=== PATIENT | male | born 1965 | race Caucasian/White ===

== ENCOUNTER 2017-10-20 10:31 | Inpatient (IN) | payer OTHER ==
[~2017-10-20] VITALS: Ht 185.4 cm; Wt 100.5 kg
[2017-10-20] MEDS ORDERED: IOHEXOL 350 MG/ML 10 ML VIAL (for RAD DIAG) IVCONTRAST ONE (10:32)
[2017-10-20 10:39] VITALS: BP 137/82; TEMP 98
[2017-10-20] MEDS ORDERED: ZOLO100T PO (10:49)
[2017-10-20] MEDS ORDERED: SODIUM CHLORIDE 0.9% FLUSH 10 ML FLUSH IVF PRN (11:00)
[2017-10-20] MEDS ORDERED: SODIUM CHLOR 0.9% 1000 ML INJ 1,000 ML IV ONE ×2 (11:00→15:15)
[2017-10-20] MEDS ORDERED: HYDROmorphone HCL PF 1 MG/ML VIAL IV PUSH ONE ×2 (11:00→11:30)
--- NOTE | 2017-10-20 11:26 | PD ---
HPI Chief Complaint: Musculoskeletal Complaint Time Seen by Provider: 10:50 Travel History International Travel<30 days: No Contact w/Intl Traveler<30days: No Traveled to known affect area: No History of Present Illness HPI 51-year-old male with PMH of HTN, HLD presents to the ED via EMS from [facility]. The patient states that he was working under a [employer] truck this morning. He had a josef under the front end of the vehicle. He states that his long lever was broken so he was using a short lever to lower the josef. During this time he was lying on his side with his shoulders and head under the front of the car. He states that the josef came down faster than expected and the car dropped onto his left shoulder, pinning his right shoulder to the ground. He states it felt a painful pop in the mid sternum and complains of 10/10 pain in the area on presentation. Pain is worsened by deep breathing or movement. Denies hitting his head or LOC. He denies palpitations, shortness of breath, abdominal pain, nausea or vomiting. Denies pain, weakness, limitations to ROM of the bilateral shoulders or upper extremities. Per EMS he received 100 mics of fentanyl en route. PFSH Past Medical History High Cholesterol: Yes Diminished Hearing: No Hypertension: Yes Tetanus Vaccination: < 5 Years ?: Not Past Surgical History Surgical History: No Previous Surgery Social History Alcohol Use: Yes (Ocasionally) Tobacco Use: No Substance Use: No Allergies-Medications (Allergen,Severity, Reaction): Coded Allergies: Penicillins (Verified Allergy, Unknown, Hives, 10/20/17) ampicillin (Verified Allergy, Unknown, Hives, 10/20/17) Reported Meds & Prescriptions Reported Meds & Active Scripts Active Reported Zoloft (Sertraline HCl) 100 Mg Tab 100 Mg PO DAILY Review of Systems Except as stated in HPI: all other systems reviewed are Neg Physical Exam Narrative GENERAL: Well-nourished, well-developed white male in no acute distress. SKIN: Warm and dry. ~1cm superficial abrasion of the right elbow. Thorough evaluation reveals no other edema, ecchymosis, abrasion, or laceration of the skin. HEAD: Normocephalic. Atraumatic. No raccoon eyes or carlson sign. No tenderness to palpation of the skull. No bony step-offs. No malocclusion of the teeth. EYES: No scleral icterus. No injection or drainage. PERRLA. EOMI. ENT: Pearly mendes tympanic membranes bilaterally. Nasal mucosa is moist. Oropharynx without erythema, edema or exudate. NECK: Supple, trachea midline. No JVD or lymphadenopathy. No midline tenderness to palpation. Patient retains full, active, painless range of motion of the neck. CARDIOVASCULAR: Regular rate and rhythm without murmurs, gallops, or rubs. 2+ DP and radial pulses bilaterally. CHEST: Tender throughout with deformity of the midbody of the sternum. No crepitus. No retractions or use of accessory muscles. RESPIRATORY: Breath sounds clear and equal bilaterally. GASTROINTESTINAL: Abdomen soft, non-tender, nondistended. + Bowel sounds MUSCULOSKELETAL: No cyanosis, or edema. No tenderness to palpation or limitations to range of motion of the joints of the upper and lower extremities bilaterally. NEUROLOGICAL: Awake and alert. Cranial nerves II through XII intact. Motor and sensory grossly within normal limits. 5/5 muscle strength in all muscle groups. Normal speech. BACK: Nontender without obvious deformity. No CVA tenderness. No midline tenderness. Data Data Last Documented VS Vital Signs Date Time Temp Pulse Resp B/P (MAP) Pulse Ox O2 Delivery O2 Flow Rate FiO2 10/20/17 13:32 18 10/20/17 11:54 79 142/79 (100) 98 Room Air 10/20/17 10:39 98.0 Orders Orders Complete Blood Count With Diff (10/20/17 11:00) Comprehensive Metabolic Panel (10/20/17 11:00) Prothrombin Time / Inr (Pt) (10/20/17 11:00) Troponin I (10/20/17 11:00) Iv Access Insert/Monitor (10/20/17 11:00) Electrocardiogram (10/20/17 11:00) Ecg Monitoring (10/20/17 11:00) Oximetry (10/20/17 11:00) Chest, Single Ap (10/20/17 11:00) Sodium Chloride 0.9% Flush (Ns Flush) (10/20/17 11:00) Ct Thorax/ Chest W Iv Contrast (10/20/17 ) Hydromorphone Pf Inj (Dilaudid Pf Inj) (10/20/17 11:00) Sodium Chlor 0.9% 1000 Ml Inj (Ns 1000 M (10/20/17 11:00) Act Partial Throm Time (Ptt) (10/20/17 11:00) Hydromorphone Pf Inj (Dilaudid Pf Inj) (10/20/17 11:30) Hydromorphone Pf Inj (Dilaudid Pf Inj) (10/20/17 11:45) Hydromorphone Pf Inj (Dilaudid Pf Inj) (10/20/17 13:15) Hydromorphone Pf Inj (Dilaudid Pf Inj) (10/20/17 13:30) Iohexol 350 Inj (Omnipaque 350 Inj) (10/20/17 10:32) Admit Order (Ed Use Only) (10/20/17 14:15) Labs Laboratory Tests Test 10/20/17 11:15 10/20/17 13:20 White Blood Count 6.4 TH/MM3 Red Blood Count 4.60 MIL/MM3 Hemoglobin 13.9 GM/DL Hematocrit 39.7 % Mean Corpuscular Volume 86.3 FL Mean Corpuscular Hemoglobin 30.3 PG Mean Corpuscular Hemoglobin Concent 35.2 % Red Cell Distribution Width 13.2 % Platelet Count 242 TH/MM3 Mean Platelet Volume 9.4 FL Neutrophils (%) (Auto) 66.9 % Lymphocytes (%) (Auto) 24.9 % Monocytes (%) (Auto) 6.4 % Eosinophils (%) (Auto) 1.2 % Basophils (%) (Auto) 0.6 % Neutrophils # (Auto) 4.2 TH/MM3 Lymphocytes # (Auto) 1.6 TH/MM3 Monocytes # (Auto) 0.4 TH/MM3 Eosinophils # (Auto) 0.1 TH/MM3 Basophils # (Auto) 0.0 TH/MM3 CBC Comment DIFF FINAL Differential Comment Prothrombin Time 11.2 SEC Prothromb Time International Ratio 1.1 RATIO Activated Partial Thromboplast Time 24.5 SEC Blood Urea Nitrogen 17 MG/DL Creatinine 0.88 MG/DL Random Glucose 96 MG/DL Total Protein 7.3 GM/DL Albumin 3.9 GM/DL Calcium Level 8.5 MG/DL Alkaline Phosphatase 106 U/L Aspartate Amino Transf (AST/SGOT) 18 U/L Alanine Aminotransferase (ALT/SGPT) 28 U/L Total Bilirubin 0.5 MG/DL Sodium Level 138 MEQ/L Potassium Level 4.0 MEQ/L Chloride Level 107 MEQ/L Carbon Dioxide Level 25.2 MEQ/L Anion Gap 6 MEQ/L Estimat Glomerular Filtration Rate 91 ML/MIN Troponin I LESS THAN 0.02 NG/ML MDM Medical Decision Making Medical Screen Exam Complete: Yes Emergency Medical Condition: Yes Differential Diagnosis Sternal fracture versus flail chest versus rib fracture versus musculoskeletal pain versus pneumothorax versus hemothorax versus other Narrative Course 51-year-old male with PMH of HTN, HLD presents to the ED via EMS from [facility]. Patient states that he was lying on his side, attempting to lower josef and was pinned under a mail truck. He versus feeling a pop in the midsternum and complaint to 10 pain on presentation. Denies palpitations, SOB, abdominal pain, nausea, vomiting, upper extremity injury. Vitals reviewed. O2 sats 98% on room air on presentation. Physical exam reveals deformity of the mid sternum and tenderness to palpation over the medial chest. Exams otherwise unremarkable. IV is established. Patient was administered 0.5 milligram of Dilaudid. EKG: Rate 79, sinus rhythm short KS interval. KS 107, QRS 106, QTC 405. Normal axis. No acute ST changes. Reviewed by Dr. Shelley CXR: Airspace opacities in the left lung base without consolidation. No evidence of pneumothorax. Troponin less then 0.02. CBC and CMP unremarkable. INR 1.1. CT chest: Negative for acute traumatic injury. Minimal bibasilar parenchymal changes. No displaced fracture. Sternum intact. Patient continues to complain of pain was administered 2 mg of Dilaudid IV. I spoke with Dr. Caceres who agrees to accept the patient to the trauma service. Please see trauma notes for disposition. Denita Cee Oct 20, 2017 11:26
[2017-10-20] MEDS ORDERED: HYDROmorphone HCL PF 2 MG/ML VIAL IV PUSH ONE ×3 (11:45→13:30)
[2017-10-20 11:54] VITALS: BP 142/79; PULSE 79; RESP 17; O2SAT 98
[2017-10-20 12:12] LABS: AUTOMATED NEUTROPHIL # 4.2 TH/MM3 (1.8-7.7); BASOPHIL % 0.6 % (0.0-2.0); EOSINOPHIL # 0.1 TH/MM3 (0-0.4); EOSINOPHIL % 1.2 % (0.0-4.0); HEMATOCRIT 39.7 % (39.0-51.0); HEMOGLOBIN 13.9 GM/DL (13.0-17.0); LYMPH % 24.9 % (9.0-44.0); LYMPHOCYTE # 1.6 TH/MM3 (1.0-4.8); MEAN CELL VOLUME 86.3 FL (80.0-100.0); MEAN CORPUSCULAR HEMOGLOBIN 30.3 PG (27.0-34.0); MEAN CORPUSCULAR HGB CONC 35.2 % (32.0-36.0); MEAN PLATELET VOLUME 9.4 FL (7.0-11.0); MONO % 6.4 % (0.0-8.0); MONOCYTE # 0.4 TH/MM3 (0-0.9); NEUT % 66.9 % (16.0-70.0); PLATELET COUNT 242 TH/MM3 (150-450); RED CELL DISTRIBUTION WIDTH 13.2 % (11.6-17.2); WHITE BLOOD COUNT 6.4 TH/MM3 (4.0-11.0)
--- NOTE | 2017-10-20 12:41 | RADRPT ---
EXAM DATE/TIME: 10/20/2017 12:03 [facility] COMPARISON: No previous studies available for comparison. INDICATIONS : Trauma. MEDICAL HISTORY : None. SURGICAL HISTORY : None. ENCOUNTER: Initial ACUITY: 1 day PAIN SCORE: 0/10 LOCATION: Bilateral chest FINDINGS: Frontal view of the chest demonstrates patchy airspace opacities at the left lung base and some mild lower medial air bronchograms. The right lung is clear. The heart is normal size. CONCLUSION: Airspace opacities of the left lung base without consolidation. No evidence pneumothorax. Ezequiel Young MD on October 20, 2017 at 12:37 Board Certified Radiologist. This report was verified electronically.
[2017-10-20 13:46] LABS: INTERNATIONAL NORMALIZED RATIO 1.1 RATIO
[2017-10-20 13:49] LABS: PROTHROMBIN TIME - PATIENT 11.2 SEC (9.8-11.6)
--- NOTE | 2017-10-20 13:50 | PD ---
Physical Exam Narrative I, Dr. Shelley, have reviewed the advance practice practitioner's documentation and am in agreement, met with the patient face to face, made the diagnosis, and the medical decision making was done by me. *My assessment and Findings: Patient is a 51 year old male who comes in after a truck fell off a josef and onto his shoulder. He complains of severe pain to the middle of his chest. Exam shows tenderness to palpation of the chest. Lungs clear and equal bilaterally. Data Data Last Documented VS Vital Signs Date Time Temp Pulse Resp B/P (MAP) Pulse Ox O2 Delivery O2 Flow Rate FiO2 10/20/17 13:32 18 10/20/17 11:54 79 142/79 (100) 98 Room Air 10/20/17 10:39 98.0 Orders Orders Complete Blood Count With Diff (10/20/17 11:00) Comprehensive Metabolic Panel (10/20/17 11:00) Prothrombin Time / Inr (Pt) (10/20/17 11:00) Troponin I (10/20/17 11:00) Iv Access Insert/Monitor (10/20/17 11:00) Electrocardiogram (10/20/17 11:00) Ecg Monitoring (10/20/17 11:00) Oximetry (10/20/17 11:00) Chest, Single Ap (10/20/17 11:00) Sodium Chloride 0.9% Flush (Ns Flush) (10/20/17 11:00) Ct Thorax/ Chest W Iv Contrast (10/20/17 ) Hydromorphone Pf Inj (Dilaudid Pf Inj) (10/20/17 11:00) Sodium Chlor 0.9% 1000 Ml Inj (Ns 1000 M (10/20/17 11:00) Act Partial Throm Time (Ptt) (10/20/17 11:00) Hydromorphone Pf Inj (Dilaudid Pf Inj) (10/20/17 11:30) Hydromorphone Pf Inj (Dilaudid Pf Inj) (10/20/17 11:45) Hydromorphone Pf Inj (Dilaudid Pf Inj) (10/20/17 13:15) Hydromorphone Pf Inj (Dilaudid Pf Inj) (10/20/17 13:30) Iohexol 350 Inj (Omnipaque 350 Inj) (10/20/17 10:32) Admit Order (Ed Use Only) (10/20/17 14:15) Labs Laboratory Tests Test 10/20/17 11:15 10/20/17 13:20 White Blood Count 6.4 TH/MM3 Red Blood Count 4.60 MIL/MM3 Hemoglobin 13.9 GM/DL Hematocrit 39.7 % Mean Corpuscular Volume 86.3 FL Mean Corpuscular Hemoglobin 30.3 PG Mean Corpuscular Hemoglobin Concent 35.2 % Red Cell Distribution Width 13.2 % Platelet Count 242 TH/MM3 Mean Platelet Volume 9.4 FL Neutrophils (%) (Auto) 66.9 % Lymphocytes (%) (Auto) 24.9 % Monocytes (%) (Auto) 6.4 % Eosinophils (%) (Auto) 1.2 % Basophils (%) (Auto) 0.6 % Neutrophils # (Auto) 4.2 TH/MM3 Lymphocytes # (Auto) 1.6 TH/MM3 Monocytes # (Auto) 0.4 TH/MM3 Eosinophils # (Auto) 0.1 TH/MM3 Basophils # (Auto) 0.0 TH/MM3 CBC Comment DIFF FINAL Differential Comment Prothrombin Time 11.2 SEC Prothromb Time International Ratio 1.1 RATIO Activated Partial Thromboplast Time 24.5 SEC Blood Urea Nitrogen 17 MG/DL Creatinine 0.88 MG/DL Random Glucose 96 MG/DL Total Protein 7.3 GM/DL Albumin 3.9 GM/DL Calcium Level 8.5 MG/DL Alkaline Phosphatase 106 U/L Aspartate Amino Transf (AST/SGOT) 18 U/L Alanine Aminotransferase (ALT/SGPT) 28 U/L Total Bilirubin 0.5 MG/DL Sodium Level 138 MEQ/L Potassium Level 4.0 MEQ/L Chloride Level 107 MEQ/L Carbon Dioxide Level 25.2 MEQ/L Anion Gap 6 MEQ/L Estimat Glomerular Filtration Rate 91 ML/MIN Troponin I LESS THAN 0.02 NG/ML MDM Supervised Visit with RENAN: Yes Narrative Course Patient given pain medicine. CT chest performed shows no acute abnormalities. Placed in observation for pain control and monitoring. Last 24 hours Impressions Chest X-Ray 10/20/17 1100 Signed Impressions: Service Date/Time: Friday, October 20, 2017 12:03 - CONCLUSION: Airspace opacities of the left lung base without consolidation. No evidence pneumothorax. Ezequiel Young MD Chest CT 10/20/17 0000 Signed Impressions: Service Date/Time: Friday, October 20, 2017 13:42 - CONCLUSION: Negative for acute traumatic injury. Minimal bibasilar parenchymal changes No displaced fracture. Sternum intact Samuel Candelario MD FACR Diagnosis Primary Impression: Chest wall contusion Qualified Codes: S20.219A - Contusion of unspecified front wall of thorax, initial encounter Admitting Information Admitting Physician Requests: Observation Scripts Lidocaine (Lidoderm) 5 % Adh..patch 1 PATCH TD DAILY for Pain Management, #20 EA Prov: Kacy James [employer] 10/21/17 Sennosides-Docusate Sodium (Gnp Senna Plus 8.6-50 mg) 8.6 Mg-50 Mg Tab 2 TAB PO BID for Constipation, #30 TAB Prov: Kacy James [employer] 10/21/17 Oxycodone HCl/Acetaminophen (Oxycodone-Acetaminophen 5-325) 5 Mg-325 Mg Tablet 1-2 TAB PO Q4H Y for Pain, #30 TAB Prov: Kacy JamesP 10/21/17 Methocarbamol (Methocarbamol) 500 Mg Tab 500 MG PO Q8HR for Muscle Spasm, #40 TAB Prov: Kacy JamesP 10/21/17 Constanza Shelley MD Oct 20, 2017 13:50
[2017-10-20 14:02] LABS: ALBUMIN 3.9 GM/DL (3.4-5.0); ALT (GPT) 28 U/L (12-78); AST (GOT) 18 U/L (15-37); BICARBONATE 25.2 MEQ/L (21.0-32.0); BLOOD UREA NITROGEN 17 MG/DL (7-18); CALCIUM 8.5 MG/DL (8.5-10.1); CHLORIDE 107 MEQ/L (98-107); CREATININE 0.88 MG/DL (0.60-1.30); GLOMERULAR FILTRATION RATE 91 ML/MIN (>89); GLUCOSE,RANDOM 96 MG/DL (74-106); SODIUM (NA) 138 MEQ/L (136-145)
[2017-10-20 14:06] LABS: ALKALINE PHOSPHATASE 106 U/L (45-117); TOTAL BILIRUBIN ADULT 0.5 MG/DL (0.2-1.0); TOTAL PROTEIN 7.3 GM/DL (6.4-8.2); TROPONIN I LESS THAN 0.02 NG/ML (0.02-0.05)
--- NOTE | 2017-10-20 14:23 | RADRPT ---
EXAM DATE/TIME: 10/20/2017 13:42 [facility] COMPARISON: CHEST SINGLE AP, October 20, 2017, 12:03. INDICATIONS : Car fell on patient,right chest area IV CONTRAST: 70 cc Omnipaque 350 (iohexol) IV RADIATION DOSE: 20.03 CTDIvol (mGy) MEDICAL HISTORY : Hypertension. SURGICAL HISTORY : None. ENCOUNTER: Initial ACUITY: 1 day PAIN SCALE: 3/10 LOCATION: Right chest TECHNIQUE: Volumetric scanning of the chest was performed. Using automated exposure control and adjustment of t he mA and/or kV according to patient size, radiation dose was kept as low as reasonably achievable to obtain optimal diagnostic quality images. DICOM format image data is available electronically for review and comparison. Follow-up recommendations for detected pulmonary nodules are based at a minimum on nodule size and pa tient risk factors according to Fleischner Society Guidelines. FINDINGS: Minimal bibasilar atelectatic changes are evident. There is no axillary adenopathy. Mediastinum is intact. There is no pneumothorax. There is no shara cardial effusion Portion of the liver visualizes free of focal defects Review of bone windows reveals clavicles and sternum to be intact. I don't see displaced rib fractur es. CONCLUSION: Negative for acute traumatic injury. Minimal bibasilar parenchymal changes No displaced fracture. Sternum intact Samuel Candelario MD FACR on October 20, 2017 at 14:19 Board Certified Radiologist. This report was verified electronically.
[2017-10-20] MEDS ORDERED: ONDANSETRON HCL 4 MG/2 ML VIAL IV PUSH ONE (14:30)
[2017-10-20 14:36] VITALS: BP 131/65; PULSE 72; RESP 17; O2SAT 94
[2017-10-20] MEDS ORDERED: oxyCODONE/ACETAMINOPHEN 10 MG/325 MG TAB PO ONE (15:15)
[2017-10-20] MEDS ORDERED: NALOXONE HCL 0.4 MG/ML AMP IV PUSH PRN (16:30)
[2017-10-20] MEDS ORDERED: Post-op Orders (for Pharmacy) XX ONE (16:30)
[2017-10-20] MEDS ORDERED: MORPHINE SULFATE 2 MG/ML INJ IV PUSH PRN (16:30)
[2017-10-20] MEDS ORDERED: SODIUM CHLORIDE 0.9% FLUSH 10 ML FLUSH IV FLUSH PRN (16:30)
[2017-10-20] MEDS ORDERED: ONDANSETRON HCL 4 MG/2 ML VIAL IV PUSH PRN (16:30)
[2017-10-20 17:00] VITALS: BP 121/63; PULSE 67; RESP 15; TEMP 96.6; O2SAT 98
[2017-10-20] MEDS: SODIUM CHLOR 0.9% 1000 ML INJ 1,000 ML IV SCH (17:00)
[2017-10-20] MEDS: oxyCODONE/ACETAMINOPHEN 5 MG/325 MG TAB PO PRN (18:52)
[2017-10-20 20:00] VITALS: BP 128/61; PULSE 73; RESP 17; TEMP 96.3; O2SAT 94
[2017-10-20] MEDS ORDERED: LACTULOSE SYRUP 20 GM/30 ML CUP PO PRN (20:00)
[2017-10-20] MEDS ORDERED: REMOVE OLD PATCH T-DERMAL SCH (21:00)
[2017-10-20] MEDS: SODIUM CHLORIDE 0.9% FLUSH 10 ML FLUSH IV FLUSH SCH (21:00)
[2017-10-20] MEDS: METHOCARBAMOL 500 MG TAB PO SCH (22:07)
[2017-10-20] MEDS: DOCUSATE SODIUM 50 MG/SENNA 8.6 MG TAB PO SCH (22:07)
[2017-10-20] MEDS: LISINOPRIL 10 MG TAB PO SCH (22:07)
--- NOTE | 2017-10-20 22:08 | MH ---
cc: RENU CALHOUN MD DATE OF ADMISSION: 10/20/2017 REASON FOR ADMISSION: Trauma to the chest, severe chest pain, buckle injury to the sternum and costochondral junction. HISTORY OF PRESENT DISEASE: This 51-year-old male was working under some sort of a truck when the thing fell on him. He was laying sideways so he felt severe chest pain. He was brought into the hospital, was evaluated by the ER physician. I was called to admit the patient for possible sternal fracture. On x-rays there was no sternal fracture, however the patient had severe pain in the right costochondral junction which is a buckle injury and he is admitted for same. PAST SURGICAL HISTORY: Negative. PAST MEDICAL HISTORY: Hypertension. Depression. MEDICATIONS: The patient is on Zoloft and I guess lisinopril but I do not see that here in the computer. ALLERGIES: No known allergies. 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 PHYSICAL EXAMINATION: The patient is a pleasant 51 year-old gentleman in no acute distress. HEENT: Normocephalic. No trauma to the head. Pupils equal and reactive. Extraocular muscles intact. Neck: Supple, bilateral carotid pulses. No bruits. No signs of trauma to the neck. Chest: Bilateral breath sounds. Heart: Regular rhythm. Hemodynamically the patient is intact. On palpation he is very tender over the right chest, especially costochondral junction, sternum. However, I do not appreciate fractures or deformities here. Abdomen: Soft. Active bowel sounds. No rebound, no guarding, no masses. Extremities: Grossly within normal limits. Back: Normal. The patient does not have injuries to his shoulders except for some bruising. IMPRESSION AND PLAN: The patient is a 51-year-old male with a buckle injury to his rib cage and severe pain. He is admitted for pain management and observation. Renu MCGREGOR/GORGE /7:53 PM /9:57 PM
[2017-10-20] MEDS: LIDOCAINE HCL 5% PATCH TD SCH (22:09)
[2017-10-20] MEDS: FAMOTIDINE 20 MG TAB PO SCH (22:10)
[2017-10-21] VITALS: BP 111/59; PULSE 75; RESP 17; TEMP 96.9; O2SAT 92
[2017-10-21] MEDS: oxyCODONE/ACETAMINOPHEN 5 MG/325 MG TAB PO PRN (03:44)
[2017-10-21] MEDS ORDERED: OMEP20TA93 PO (04:59)
[2017-10-21] MEDS ORDERED: ATOR40TA16 PO (04:59)
[2017-10-21] MEDS ORDERED: SUCR1TAB PO (04:59)
[2017-10-21] MEDS: METHOCARBAMOL 500 MG TAB PO SCH (05:47)
[2017-10-21] MEDS ORDERED: oxyCODONE/ACETAMINOPHEN 10 MG/325 MG TAB PO PRN (06:30)
[2017-10-21 07:18] LABS: AUTOMATED NEUTROPHIL # 4.8 TH/MM3 (1.8-7.7); BASOPHIL % 0.5 % (0.0-2.0); EOSINOPHIL # 0.1 TH/MM3 (0-0.4); EOSINOPHIL % 1.4 % (0.0-4.0); HEMATOCRIT 35.1 % (39.0-51.0); HEMOGLOBIN 12.3 GM/DL (13.0-17.0); LYMPH % 21.9 % (9.0-44.0); LYMPHOCYTE # 1.5 TH/MM3 (1.0-4.8); MEAN CELL VOLUME 87.3 FL (80.0-100.0); MEAN CORPUSCULAR HEMOGLOBIN 30.6 PG (27.0-34.0); MONO % 7.4 % (0.0-8.0); MONOCYTE # 0.5 TH/MM3 (0-0.9); NEUT % 68.8 % (16.0-70.0); PLATELET COUNT 212 TH/MM3 (150-450); RED BLOOD COUNT 4.02 MIL/MM3 (4.50-5.90); RED CELL DISTRIBUTION WIDTH 13.2 % (11.6-17.2); WHITE BLOOD COUNT 6.9 TH/MM3 (4.0-11.0)
[2017-10-21 08:00] VITALS: BP 122/61; PULSE 69; RESP 18; TEMP 97; O2SAT 94
[2017-10-21] MEDS ORDERED: SERTRALINE HCL 100 MG TAB PO SCH (09:00)
--- NOTE | 2017-10-21 09:05 | RADRPT ---
EXAM DATE/TIME: 10/21/2017 08:37 [facility] COMPARISON: CHEST SINGLE AP, October 20, 2017, 12:03. INDICATIONS : Evaluate for pulmonary contusion. Short of breath. MEDICAL HISTORY : Hypertension. SURGICAL HISTORY : None. ENCOUNTER: Subsequent ACUITY: 2 days PAIN SCORE: 4/10 LOCATION: Right chest FINDINGS: There is persistent mild contusion or atelectasis in the left lung base and small effusion present. M inimal atelectasis in the contralateral right face. No evidence of pneumothorax. Cardiac contours are grossly stable. CONCLUSION: Mild bibasilar parenchymal opacities and small left effusion Graham Khan MD on October 21, 2017 at 9:01 Board Certified Radiologist. This report was verified electronically.
[2017-10-21] MEDS: FAMOTIDINE 20 MG TAB PO SCH (10:01)
[2017-10-21] MEDS: LISINOPRIL 10 MG TAB PO SCH (10:02)
[2017-10-21] MEDS: LIDOCAINE HCL 5% PATCH TD SCH (10:03)
[2017-10-21] MEDS: DOCUSATE SODIUM 50 MG/SENNA 8.6 MG TAB PO SCH (10:03)
[2017-10-21] MEDS: SODIUM CHLOR 0.9% 1000 ML INJ 1,000 ML IV SCH (10:04)
[2017-10-21] MEDS ORDERED: METH500T3 PO (11:22)
[2017-10-21] MEDS ORDERED: OXYC1TAB63 PO (11:22)
[2017-10-21] MEDS ORDERED: LIDO1ADH4 TD (11:59)
[2017-10-21] MEDS ORDERED: PERI PO (11:59)
[2017-10-21 12:00] VITALS: BP 125/67; PULSE 72; RESP 16; TEMP 95.9; O2SAT 92
[2017-10-21] MEDS: SODIUM CHLORIDE 0.9% FLUSH 10 ML FLUSH IV FLUSH SCH (12:35)
--- NOTE | 2017-10-21 13:27 | HHI.DS ---
Discharge Summary Admission Date Oct 20, 2017 at 16:28 Discharge Date: Oct 21, 2017 Admitting Diagnosis displaced sternal fracture (1) Blunt chest trauma ICD Codes: S29.8XXA - Other specified injuries of thorax, initial encounter Diagnosis: Principal (2) Injury of sternum ICD Codes: S29.9XXA - Unspecified injury of thorax, initial encounter (3) Bilateral pulmonary contusion ICD Codes: S27.322A - Contusion of lung, bilateral, initial encounter (4) Substernal chest pain ICD Codes: R07.2 - Precordial pain Brief History S/P Trauma: Blunt chest trauma CBC/BMP: 10/21/17 0528 10/20/17 1320 Significant Findings Laboratory Tests Test 10/20/17 11:15 10/20/17 13:20 10/21/17 05:28 Troponin I LESS THAN 0.02 NG/ML Red Blood Count 4.02 MIL/MM3 (4.50-5.90) Hemoglobin 12.3 GM/DL (13.0-17.0) Hematocrit 35.1 % (39.0-51.0) Imaging Last Impressions Chest X-Ray 10/21/17 0000 Signed Impressions: Service Date/Time: October 08:37 - CONCLUSION: Mild bibasilar parenchymal opacities and small left effusion Graham Khan MD Chest CT 10/20/17 0000 Signed Impressions: Service Date/Time: Friday, October 20, 2017 13:42 - CONCLUSION: Negative for acute traumatic injury. Minimal bibasilar parenchymal changes No displaced fracture. Sternum intact Samuel Candelario MD FACR PE at Discharge GENERAL: 51 year old well-nourished, well-developed male OOB in chair. SKIN: Warm and dry. HEAD: Atraumatic. Normocephalic. EYES: Pupils equal and round. No scleral icterus. No injection or drainage. ENT: No nasal bleeding or discharge. Mucous membranes pink and moist. NECK: Trachea midline. No JVD. CARDIOVASCULAR: Regular rate and rhythm. RESPIRATORY: No accessory muscle use. Clear and diminished to auscultation. Breath sounds equal bilaterally. Midline sternum painful to palpation. GASTROINTESTINAL: Abdomen soft, non-tender, nondistended. + BS MUSCULOSKELETAL: Extremities without cyanosis, or edema. MAEW, + perfused. Full ROM in shoulders. NEUROLOGICAL: Awake and alert. Normal speech. Hospital Course [place]: Working under a vehicle that was jacked up, lying on his right side. The josef came down too quickly causing the vehicle to land on his left shoulder and pinning his right shoulder to the ground. Patient reports a loud mid-sternal pop and substernal chest pain. Transferred for Trauma services. INJURIES: Sternal injury BILAT pulmonary contusions PMHx: Depression Sternal injury, BILAT pulmonary contusions Supportive care CXR today stable Pulmonary toileting- encouraged home use of IS Pain control Denies shoulder pain, just substernal CP No heavy lifting or strenuous activity until released by F/U with Trauma office in 1 week Plan of care d/w patient and at bedside. Patient is clear from Trauma surgery standpoint to safely DC home. Pt Condition on Discharge: Stable Discharge Disposition: Discharge Home Discharge Instructions DIET: Follow Instructions for: As Tolerated, No Restrictions Activities you can perform: Weight Bearing as Sharan Activities to Avoid: Concussion Sports, Contact Sports, Strenuous Activity Kacy James Oct 21, 2017 13:27
--- NOTE | 2017-10-21 20:14 | EKG ---
Date Performed: 10/20/2017 Time Performed: 11:42:23 PTAGE: 51 years EKG: Sinus rhythm WITH SHORT NM INTERVAL BORDERLINE ECG NO PREVIOUS TRACING DOCTOR: Chris Lucas Interpretating Date/Time 10/21/2017 20:13:34
== END 2017-10-21 13:12 | disposition home or self-care (01) | DRG 206 ==
LOC: NEPE 10:31 → NEDA 14:17 → OBSVTOIN 16:28 → N07B 16:45
PROVIDERS: ADMIT Surgery; ATTEND Surgery
DX: S27.322A Contusion of lung, bilateral, initial encounter (principal); I10 Essential (primary) hypertension; S29.8XXA Other specified injuries of thorax, initial encounter; F32.9 Major depressive disorder, single episode, unspecified; E78.5 Hyperlipidemia, unspecified; W23.1XXA Caught, crushed, jammed, or pinched between stationary objects, initial encounter; Y92.69 Other specified industrial and construction area as the place of occurrence of the external cause; Y99.0 Civilian activity done for income or pay; R07.2 Precordial pain
CPT/HCPCS: 71045; 71260; 80053; 84484; 85025; 85610; 85730; 93005; 94150; 96361; 96374; 96376; J1170; J2405; J7030; Q9967

== ENCOUNTER 2018-02-28 13:14 | Emergency (ER) | payer OTHER ==
[~2018-02-28] VITALS: Ht 185.4 cm; Wt 100.0 kg
[~2018-02-28 13:14] MED LIST: ATOR40TA16 PO; LIDO1ADH4 TD; METH500T3 PO; OMEP20TA93 PO; OXYC1TAB63 PO; PERI PO; SUCR1TAB PO; ZOLO100T PO
[2018-02-28 13:18] VITALS: BP 176/108; PULSE 86; RESP 16; TEMP 98.4; O2SAT 96
[2018-02-28] MEDS ORDERED: PRED20 PO (14:27)
[2018-02-28] MEDS ORDERED: CYCL5TAB PO (14:27)
--- NOTE | 2018-02-28 14:53 | PD ---
HPI Chief Complaint: Laceration/Skin Injury Time Seen by Provider: 14:39 Travel History International Travel<30 days: No Contact w/Intl Traveler<30days: No Traveled to known affect area: No History of Present Illness HPI 52-year-old male presents to the emergency department with complaint of a laceration to his left forearm from a piece of tile that fell and cut his arm. He was seen in urgent care and was told to come here because of "an arterial bleed." He denies paresthesias, loss of sensation, decreased range of motion, decreased strength to the affected hand/extremity. Has applied pressure to control bleeding. Is up-to-date on tetanus vaccination. Says he is not in any pain right now because they did numb the laceration at urgent care. Has not taken any medications to alleviate her symptoms. Symptoms are mild in severity. Allergies to penicillins. Primary care provider is Dr. Santoyo in [place]. History of hypertension and hypercholesterolemia. Has no other medical complaints. No other modifying factors or associated signs and symptoms. PFSH Past Medical History Arthritis: Yes Depression: Yes Cancer: No High Cholesterol: Yes Diminished Hearing: No Endocrine: No GERD: Yes Genitourinary: No Hypertension: Yes Neurologic: No Reproductive: No Respiratory: No Tetanus Vaccination: < 5 Years Past Surgical History Surgical History: No Previous Surgery Other Surgery: No Social History Alcohol Use: Yes (Ocasionally) Tobacco Use: No Substance Use: No Allergies-Medications (Allergen,Severity, Reaction): Coded Allergies: Penicillins (Verified Allergy, Unknown, Hives, 10/20/17) ampicillin (Verified Allergy, Unknown, Hives, 10/20/17) Reported Meds & Prescriptions Reported Meds & Active Scripts Active Bactrim DS (Sulfamethoxazole-Trimethoprim) 800-160 Mg Tab 1 Tab PO BID 7 Days Reported Prednisone 20 Mg Tab 40 Mg PO DIRECTED 40 MG twice a day x 3 days, then 20 MG daily x 3 days, then 10 MG daily x 3 days Flexeril (Cyclobenzaprine HCl) Unknown Strength Tab Unknown Dose PO BID Omeprazole 20 Mg Tab 20 Mg PO DAILY Sucralfate 1 Gram Tab 1 Gm PO QID on empty stomach Atorvastatin (Atorvastatin Calcium) 40 Mg Tab 40 Mg PO HS Zoloft (Sertraline HCl) 100 Mg Tab 100 Mg PO DAILY Review of Systems Except as stated in HPI: all other systems reviewed are Neg Physical Exam Narrative GENERAL: Well-nourished, well-developed male patient, in no acute distress SKIN: Warm and dry. Dorsal aspect of left mid forearm with approximately 2 cm laceration; bleeding controlled. Left upper extremity is supple and non-tense with 2+ radial pulse and sensory intact without erythema or edema; full tailercpa strength and all fingers with full flexion and extension. HEAD: Atraumatic. Normocephalic. EYES: Pupils equal and round. No scleral icterus. No injection or drainage. ENT: Mucosa pink and moist. Airway patent. NECK: Trachea midline. CARDIOVASCULAR: Regular rate RESPIRATORY: No accessory muscle use. GASTROINTESTINAL: Flat. MUSCULOSKELETAL: No obvious deformities. No clubbing. No cyanosis. No edema. NEUROLOGICAL: Awake and alert. Oriented 3. No obvious cranial nerve deficits. Motor grossly within normal limits. Normal speech. PSYCHIATRIC: Appropriate mood and affect; insight and judgment normal. Data Data Last Documented VS Vital Signs Date Time Temp Pulse Resp B/P (MAP) Pulse Ox O2 Delivery O2 Flow Rate FiO2 02/28/18 13:18 98.4 86 16 176/108 (130) 96 Orders Orders Lidocaine Pf 1% Inj (Xylocaine-Mpf 1% In (02/28/18 15:00) Ed Discharge Order (02/28/18 15:16) MDM Medical Decision Making Medical Screen Exam Complete: Yes Emergency Medical Condition: Yes Medical Record Reviewed: Yes Differential Diagnosis Laceration, cut, abrasion Narrative Course 52-year-old male with left forearm laceration. Up-to-date on tetanus vaccination. See my procedure note for laceration repair. Patient would like antibiotics for home. Bactrim prescribed for home. Instructed patient to return to emergency department or follow-up with primary care provider in 10 days for staple removal. Instructed patient to follow up with primary care provider. Patient verbalizes understanding and agreement with treatment plan. Patient is medically cleared and stable for discharge. Discussed reasons to return to the emergency department. Patient agrees with treatment plan. The patients vital signs are stable and the patient is stable for outpatient follow- up and treatment. Patient discharged home, stable and in no acute distress. Procedures Procedure Narrative LACERATION LOCATION: Dorsal aspect of left forearm LENGTH: 2cm NUMBER OF STITCHES/ORA: 5 ora REPAIR: The area of the laceration was prepped with Betadine and sterilely draped. The laceration was infiltrated with 1% lidocaine. The wound was copiously irrigated and explored without evidence of foreign body, tendon injury or neurovascular injury. The wound was closed using ora. This was a single layer repair. A sterile dressing was applied. The patient was advised to keep the dressing clean and dry. Patient tolerated the procedure well. Diagnosis Primary Impression: Laceration of left forearm Qualified Codes: S51.812A - Laceration without foreign body of left forearm, initial encounter Referrals: Primary Care Physician Patient Instructions: General Instructions, Laceration (ED), Staple Care (ED) Additional Instructions: Keep area clean and dry Limit left arm activity to decrease risk of ora coming undone Ibuprofen or Tylenol as directed and as needed for pain Ice pack to area as needed to decrease pain Return to the emergency department in 10 days for staple removal Follow up with primary care provider within 2-4 days Return to the emergency department immediately with worsening of symptoms, particularly if reddened streaks up or down the affected extremity from the suture site, fever, numbness/tingling in the affected extremity, loss of sensation in the affected extremity, severe swelling of the affected Med/Other Pt SpecificInfo: Prescription(s) given Scripts Sulfamethoxazole-Trimethoprim (Bactrim DS) 800-160 Mg Tab 1 TAB PO BID for Infection for 7 Days, #14 TAB 0 Refills Prov: Hope Ayala 02/28/18 Disposition: 01 DISCHARGE HOME Condition: Stable Hope Ayala Feb 28, 2018 14:53
[2018-02-28] MEDS ORDERED: LIDOCAINE HCL 1% PF 30 ML VIAL INFIL ONE (15:00)
[2018-02-28] MEDS ORDERED: BACT800T5 PO (15:17)
[2018-02-28 15:50] VITALS: BP 170/83
== END 2018-02-28 15:53 | disposition home or self-care (01) ==
LOC: NEPD 13:14
DX: S51.812A Laceration without foreign body of left forearm, initial encounter (principal); I10 Essential (primary) hypertension; E78.00 Pure hypercholesterolemia, unspecified; K21.9 Gastro-esophageal reflux disease without esophagitis; M19.90 Unspecified osteoarthritis, unspecified site; F32.9 Major depressive disorder, single episode, unspecified; W45.8XXA Other foreign body or object entering through skin, initial encounter
CPT/HCPCS: 12001